=== PATIENT | male | born 1965 | race Caucasian/White ===

== ENCOUNTER 2016-09-02 02:37 | Emergency (ER) | payer BC ==
[~2016-09-02 02:37] MED LIST: ACET500CAP PEG; CENTRUM TAB1 TAB PO; CYANO1000T PO; D.O.S.100 MG PEG; HALF81 PEG; JEVITY PEG; KLONO1 PEG; KRISTALOSE20 GM PEG; LEVAQUIN750 MG PEG; MCZ25 PEG; MIRALAX POWDER1 PKT PEG; MOMUD PEG; NORV5 PEG; PLAVIX PEG; PR25 PO; PRAVAC PEG; PREV15 PO; PROSCAR5 PEG; PROTONIX20 MG PEG; REFRES1 OPH; ROXICET1 TAB PO; Z300 PEG
[2016-09-02 03:03] LABS: BASOPHILS 0.7 %; BASOPHILS ABSOLUTE 0.05 10/3/uL (0.0-0.16); EOSINOPHILS 7.4 %; EOSINOPHILS ABSOLUTE 0.51 10/3/uL (0.0-0.53); ER CBC TAT 0 Hrs 05 Mins; HEMOGLOBIN 13.4 g/dL (13.6-17.8); IMMATURE GRANULOCYTES 0.1 %; IMMATURE GRANULOCYTES ABSOLUTE 0.01 10/3/uL (0.0-0.11); LYMPHOCYTES 37.3 %; LYMPHOCYTES ABSOLUTE 2.58 10/3/uL (0.67-4.30); MEAN PLATELET VOLUME 10.3 fL (9.2-13.0); MONOCYTES 9.2 %; MONOCYTES ABSOLUTE 0.64 10/3/uL (0.21-1.20); NEUTROPHILS 45.3 %; NEUTROPHILS ABSOLUTE 3.13 10/3/uL (2.02-8.40); PLATELET COUNT 224 10/3/uL (150-400); RBC DISTRIBUTION WIDTH 13.2 % (12.0-16.0); RED CELL COUNT 4.08 10/6/uL (4.7-6.1); WHITE BLOOD CELLS 6.9 10/3/uL (4.5-10.5)
[2016-09-02 03:04] LABS: MANUAL DIFF NO %; MEAN CORPUS HGB CONC 35.3 g/dL (32.0-36.0); MEAN CORPUSCULAR HEMOGLOB 32.8 pg (26.0-34.0); MEAN CORPUSCULAR VOLUME 93.1 fL (80-100)
[2016-09-02 03:18] LABS: CALCIUM, SERUM 8.8 MG/DL (8.5-10.4); CHLORIDE, SERUM 103 MMOL/L (96-112); CO2 (CARBON DIOXIDE) 34 MMOL/L (24-34); CREATININE 1.24 MG/DL (0.70-1.30); GFR AFRICAN AMERICAN 78 ML/MIN (>=60); GFR NON AFRICAN AMERICAN 67 ML/MIN (>=60); GLUCOSE, SERUM 92 MG/DL (60-99); POTASSIUM, SERUM 3.9 MMOL/L (3.5-5.3); SODIUM, SERUM 142 MMOL/L (135-148)
[2016-09-02 03:25] LABS: BUN (BLOOD UREA NITROGEN) 14 MG/DL (6-23)
== END 2016-09-02 05:40 | disposition home or self-care (01) ==
LOC: ER 02:37
PROVIDERS: Nurse Practitioner Acute Care
DX: R51 Headache (principal); K21.9 Gastro-esophageal reflux disease without esophagitis; Z88.0 Allergy status to penicillin; Z88.8 Allergy status to other drugs, medicaments and biological substances
CPT/HCPCS: 70450; 80048; 85025; 96374; 96375; 99284; J1200; J1885; J2765